=== PATIENT | male | born 1985 | race Hispanic/Latino ===

== ENCOUNTER → 2018-06-12 14:43 | Outpatient (CLI) | payer OTHER, MEDICAID, SELFPAY ==
--- NOTE | 2018-06-12 | DI.RAD.S_ITS ---
PROCEDURE: XR WRIST LT MIN 3V INDICATIONS: PAIN IN LEFT WRIST TECHNIQUE: 4 views of the wrist were acquired. COMPARISON: None. FINDINGS: Bones: No fractures or dislocations. No suspicious bony lesions. Scaphoid view: No scaphoid fracture seen Soft tissues: No suspicious soft tissue calcifications. IMPRESSION: Negative for fracture Dictated by: Bruce Vora M.D. on 06/12/2018 at 15:09 Approved by: Bruce Vora M.D. on 06/12/2018 at 15:11
== END ==
PROVIDERS: PCP Physician Assistant; Visit Provider Physician Assistant
DX: M25.532 Pain in left wrist (principal)
CPT/HCPCS: 73110

== ENCOUNTER → 2021-06-01 15:08 | Outpatient (CLI) | payer OTHER, MEDICAID, SELFPAY | PROVIDERS: PCP Student in an Organized Health Care Education/Training Program; Referring Provider Student in an Organized Health Care Education/Training Program; Visit Provider Student in an Organized Health Care Education/Training Program | DX: R73.03 Prediabetes (principal) | CPT/HCPCS: 36415; 83036 ==

== ENCOUNTER → 2021-10-10 09:35 | Outpatient (CLI) | payer MEDICARE, OTHER, MEDICAID, SELFPAY ==
[2021-10-10 11:29] LABS: Cholesterol 199 mg/dL (140-199); HDL Cholesterol 29 mg/dL (40-60); Triglycerides 469 mg/dL (35-150)
== END ==
PROVIDERS: PCP Student in an Organized Health Care Education/Training Program; Referring Provider Student in an Organized Health Care Education/Training Program; Visit Provider Student in an Organized Health Care Education/Training Program
DX: E78.5 Hyperlipidemia, unspecified (principal)
CPT/HCPCS: 36415; 80061

== ENCOUNTER → 2022-08-24 09:13 | Outpatient (CLI) | payer MEDICARE, OTHER, MEDICAID, SELFPAY ==
[2022-08-24 10:58] LABS: Hemoglobin A1C% w Est Avg Glu 6.7 % (4.0-6.0)
[2022-08-24 11:14] LABS: Cholesterol 225 mg/dL (140-199); HDL Cholesterol 25 mg/dL (40-60)
[2022-08-24 11:20] LABS: Creatinine Urine Random 173.7 mg/dL
[2022-08-24 11:26] LABS: Triglycerides 876 mg/dL (35-150)
[2022-08-24 11:33] LABS: Microalbumi Creatinin Ratio Ur 89.2 ug/mg CR (<30); Microalbumin Urine Random 15.5 mg/dL (0-1.6)
== END ==
PROVIDERS: PCP Student in an Organized Health Care Education/Training Program; Referring Provider Student in an Organized Health Care Education/Training Program; Visit Provider Student in an Organized Health Care Education/Training Program
DX: E11.69 Type 2 diabetes mellitus with other specified complication (principal); E66.9 Obesity, unspecified; E78.1 Pure hyperglyceridemia
CPT/HCPCS: 36415; 80061; 82043; 82570; 83036

== ENCOUNTER → 2022-11-12 08:13 | Outpatient (CLI) | payer MEDICARE, OTHER, MEDICAID, SELFPAY ==
[2022-11-12 10:17] LABS: Creatinine Urine Random 180.6 mg/dL
[2022-11-12 10:21] LABS: Microalbumi Creatinin Ratio Ur 45.4 ug/mg CR (<30); Microalbumin Urine Random 8.2 mg/dL (0-1.6)
[2022-11-12 10:43] LABS: BUN Creatinine Ratio 10.6 (6-22); Blood Urea Nitrogen 9 mg/dL (9-20); Calcium 9.9 mg/dL (8.4-10.2); Carbon Dioxide 26 mmol/L (22-32); Chloride 102 mmol/L (98-107); Estimated Glomerular Filt Rate > 60 mL/min (>60); Glucose 139 mg/dL (70-100); HEMOLYSIS < 15 (0-50); Potassium 4.3 mmol/L (3.4-5.1); Sodium 139 mmol/L (137-145); Triglycerides 476 mg/dL (35-150)
[2022-11-12 10:54] LABS: LDL Cholesterol Direct 99 mg/dL (<100)
== END ==
PROVIDERS: PCP Student in an Organized Health Care Education/Training Program; Referring Provider Student in an Organized Health Care Education/Training Program; Visit Provider Student in an Organized Health Care Education/Training Program
DX: E11.29 Type 2 diabetes mellitus with other diabetic kidney complication (principal); E11.69 Type 2 diabetes mellitus with other specified complication; E66.9 Obesity, unspecified; E78.1 Pure hyperglyceridemia; R80.9 Proteinuria, unspecified
CPT/HCPCS: 36415; 80048; 82043; 82570; 83721; 84478

== ENCOUNTER 2023-05-30 20:59 | Emergency (ER) | payer MEDICARE, MEDICAID, SELFPAY ==
[2023-05-30 21:05] VITALS: BP 148/78; PULSE 79; RESP 18; TEMP 37.5; O2SAT 99
[2023-05-30 22:37] VITALS: BP 143/85; PULSE 72; RESP 20; TEMP 37.1; O2SAT 99
[2023-05-31 01:42] VITALS: BP 142/78; PULSE 69; RESP 16; TEMP 36.6; O2SAT 99
--- NOTE | 2023-05-31 02:52 | ED_ITS ---
HPI - Back Pain/Injury General Chief Complaint: Abdominal Pain Stated Complaint: lt sided pain, heard a pop Time Seen by Provider: 05/31/23 02:30 Source: patient History of Present Illness HPI Narrative: Patient is a 37-year-old male history of mental health, hypertension type 2 diabetes, hypertriglyceridemia presents today with sudden onset of left-sided flank and back pain. He reports he was sitting and felt a sudden pop 20 minutes prior to arrival. He denies fever chills no nausea or vomiting. He did not take anything for the pain. He denies any injury. He is no prior history of any sort of kidney stone. He is able to drink juice in the ED. does seem to be reproducible symptoms with palpation and movement. Overall appears comfortable now. Related Data Home Medications Medication Instructions Recorded Confirmed lithium carbonate 300 mg capsule 300 mg PO DAILY 05/02/21 12/12/22 lithium carbonate 600 mg capsule 600 mg PO BID 05/02/21 12/12/22 omega-3 fatty acids 1,000 mg 1,000 mg PO DAILY 08/24/22 12/12/22 capsule fluphenazine HCl 5 mg tablet 5 mg PO DAILY 12/12/22 12/12/22 paliperidone palm (3 month) 819 syringe IM 12/12/22 12/12/22 mg/2.63 mL intramuscular syringe (Invega Trinza) Previous Rx's Medication Instructions Recorded benztropine 1 mg tablet 1 mg PO BEDTIME #90 tabs 09/05/21 prazosin 2 mg capsule 2 mg PO BEDTIME #90 caps 09/05/21 pravastatin 40 mg tablet 40 mg PO BEDTIME #90 tabs 08/24/22 carvedilol 25 mg tablet 25 mg PO DAILY #90 tabs 03/06/23 loratadine 10 mg tablet (Allergy 10 mg PO DAILY #30 tabs 05/29/23 Relief (loratadine)) Allergies Allergy/AdvReac Type Severity Reaction Status Date / Time fenofibrate AdvReac Intermediate knee pain Verified 05/30/23 21:18 Review of Systems Review of Systems ROS Unobtainable: All systems reviewed & are unremarkable except as noted in HPI and below Patient History Social History Smoking Status: Current some day smoker Smoking Status: Current some day smoker tobacco type: cigars alcohol intake frequency: 0-2 drinks per day Substance Use Type: does not use Exam Initial Vital Signs Initial Vital Signs: Vital Signs Temperature 99.5 F 05/30/23 21:05 Pulse Rate 79 05/30/23 21:05 Respiratory Rate 18 05/30/23 21:05 Blood Pressure 148/78 H 05/30/23 21:05 Pulse Oximetry 99 05/30/23 21:05 Oxygen Delivery Method Room Air 05/30/23 21:05 GENERAL: Alert pleasant 37-year-old male and in no acute distress. HEENT: Head atraumatic,EOMI, pupils reactive, face symmetric, moist mucous membranes CARDIOVASCULAR: Regular rate and rhythm without murmurs, rubs or gallops. RESPIRATORY: Breath sounds equal bilaterally, no wheezes rales or rhonchi. ABDOMEN: Soft, nontender. Normoactive bowel sounds all 4 quadrants. No guarding or rebound. No left lower quadrant pain BACK: No vertebral tenderness no step-off lower lumbar pain : Mild left CVA tenderness EXTREMITIES: Normal range of motion, no clubbing or edema. Neurovascularly intact NEUROLOGICAL: Alert and oriented x4. SKIN: Warm, dry, no laceration, no petechiae, no rashes or lesions. Course Orders Ordered: Discontinued Medications Ibuprofen (Ibuprofen 400 Mg Tablet) 800 mg PO NOW ONE Stop: 05/31/23 02:53 Last Admin: 05/31/23 02:57 Dose: 800 mg Documented By: CHRISTIANA Vital Signs Vital signs: Vital Signs - 8 hr 05/31/23 01:42 05/31/23 03:14 Temperature 97.9 F Pulse Rate 69 60 Respiratory Rate 16 Blood Pressure 142/78 H 169/88 H Pulse Oximetry 99 98 Oxygen Delivery Method Room Air Room Air MDM - Back Pain/Injury Lab Data Labs: Urine Dip Bedside Urine Glucose Negative Bedside Urine Bilirubin - Negative Bedside Urine Ketone - Negative Urine Specific [place] 1.020 Bedside Urine Occult Blood - Negative Bedside Urine pH 6.0 Bedside Urine Protein - Negative Bedside Urine Urobilinogen - Negative Bedside Urine Nitrite - Negative Bedside Urine Leukocytes - Negative Esterase MDM Narrative Medical decision making narrative: Patient overall appears very comfortable. Presents today with left-sided pain that came on suddenly. It is reproducible to palpation it was kind of on the side initially but does seem to be in the flank area. Urinalysis is negative. I have a very low suspicion for kidney stone although still possible. He is very comfortable. He is given ibuprofen for pain. At this time I recommend going home and returning if pain is worse Discharge Plan Departure Patient Disposition: Home Clinical Impression: Back pain Instructions: Low Back Pain Activity Restrictions/Additional Instructions: *You have been diagnosed with back pain *What to do: At this time try heating pad and stretches *Continue to take medications as directed Motrin 600 mg every 6 hours if needed for ekou-un-vejpfgae pain Tylenol 650 mg every 6 hours if needed for kpwl-lu-sztfvphn pain *Follow up with your primary care provider in 2-3 days or call [phone] *Return to ER if you should have increasing pain nausea vomiting or any new, worsening or concerning symptoms Prescriptions: No Action pravastatin 40 mg tablet 40 mg PO BEDTIME Qty: 90 3RF omega-3 fatty acids 1,000 mg capsule 1,000 mg PO DAILY carvedilol 25 mg tablet 25 mg PO DAILY Qty: 90 1RF Hold Instructions: needs labs Rx Instructions: must administer with a meal/food loratadine [Allergy Relief (loratadine)] 10 mg tablet 10 mg PO DAILY Qty: 30 0RF benztropine 1 mg tablet 1 mg PO BEDTIME Qty: 90 1RF prazosin 2 mg capsule 2 mg PO BEDTIME Qty: 90 1RF Invega Trinza 819 mg/2.63 mL syringe IM fluphenazine HCl 5 mg tablet 5 mg PO DAILY lithium carbonate 600 mg capsule 600 mg PO BID lithium carbonate 300 mg capsule 300 mg PO DAILY Referrals: Patel Paulson MD [Primary Care Provider] - Stand Alone Forms: Patient Portal/API
[2023-05-31] MEDS: IBUPROFEN 400 MG TABLET 800 MG PO (02:57)
[2023-05-31 03:14] VITALS: BP 169/88; PULSE 60; O2SAT 98
== END 2023-05-31 03:15 | disposition home or self-care (01) ==
PROVIDERS: Emergency Provider Emergency Medicine; PCP Student in an Organized Health Care Education/Training Program
DX: M54.9 Dorsalgia, unspecified (principal)
CPT/HCPCS: 81003; 99282; 99283

== ENCOUNTER → 2023-10-28 11:28 | Outpatient (CLI) | payer OTHER, MEDICAID, SELFPAY ==
[2023-10-28 13:50] LABS: Add Manual Diff / Slide Review NO; Basophils Absolute Auto 0 /uL (0-100); Basophils Percent Auto 0.9 % (0-2); Eosinophils Absolute Auto 300 /uL (0-450); Eosinophils Percent Auto 5.4 % (2-4); Hematocrit 42.5 % (41-53); Hemoglobin 14.3 g/dL (13.5-17.5); Lymphocytes Absolute Auto 2100 /uL (1100-4500); Lymphocytes Percent Auto 42.2 % (25-40); Mean Corpuscular HGB Conc 33.7 % (30-36); Mean Corpuscular Hemoglobin 30.9 PG (26-34); Mean Corpuscular Volume 91.7 fL (80-100); Monocytes Absolute Auto 300 /uL (0-900); Monocytes Percent Auto 6.4 % (3-14); Neutrophils Absolute Auto 2300 /uL (1500-7000); Neutrophils Percent Auto 45.1 % (50-75); Platelet Count 232 X10^3/uL (150-400); Red Blood Cell Count 4.64 X10^6/uL (4.5-5.9); Red Cell Distribution Width 12.8 % (11.6-14.8); White Blood Cell Count 5.1 X10^3/uL (4.5-11.0)
[2023-10-28 13:56] LABS: Hemoglobin A1C% w Est Avg Glu 6.7 % (4.0-6.0)
[2023-10-28 14:11] LABS: Alanine Aminotransferase 131 IU/L (<50); Albumin 4.6 g/dL (3.5-5.0); Albumin Globulin Ratio 1.3 (1.0-2.8); Alkaline Phosphatase 91 U/L (38-126); Aspartate Aminotransferase 115 IU/L (17-59); BUN Creatinine Ratio 12.3 (6-22); Bilirubin Total 0.7 mg/dL (0.2-1.3); Blood Urea Nitrogen 9 mg/dL (9-20); Carbon Dioxide 25 mmol/L (22-32); Chloride 103 mmol/L (98-107); Cholesterol 241 mg/dL (140-199); Estimated Glomerular Filt Rate > 60 mL/min (>60); Globulin 3.6 g/dL (1.7-4.1); Glucose 141 mg/dL (70-100); HDL Cholesterol 30 mg/dL (40-60); HEMOLYSIS < 15 (0-50); Potassium 3.9 mmol/L (3.4-5.1); Sodium 138 mmol/L (137-145); Total Protein 8.2 g/dL (6.3-8.2)
[2023-10-28 14:24] LABS: Triglycerides 575 mg/dL (35-150)
[2023-10-28 14:40] LABS: TSH w/ Reflex to FT4 0.72 uIU/mL (0.47-4.68)
[2023-10-29 19:51] LABS: Creatinine Urine Random 180.9 mg/dL
[2023-10-29 19:58] LABS: Microalbumi Creatinin Ratio Ur 56.9 ug/mg CR (<30); Microalbumin Urine Random 10.3 mg/dL (0-1.6)
== END ==
PROVIDERS: PCP Family Medicine; Referring Provider Family Medicine; Visit Provider Family Medicine
DX: F20.9 Schizophrenia, unspecified (principal); Z79.899 Other long term (current) drug therapy; E11.69 Type 2 diabetes mellitus with other specified complication; E66.9 Obesity, unspecified; R80.9 Proteinuria, unspecified
CPT/HCPCS: 36415; 80053; 80061; 82043; 82570; 83036; 84443; 85025

== ENCOUNTER → 2023-11-12 06:41 | Outpatient (CLI) | payer OTHER, MEDICAID, SELFPAY ==
--- NOTE | 2023-11-12 06:42 | DI.US.S_ITS ---
PROCEDURE: US ABDOMEN LIMITED INDICATIONS: ELEVATED LIVER ENZYMES TECHNIQUE: Real-time scanning was performed of the abdominal and retroperitoneal organs, with image documentation. COMPARISON: None. FINDINGS: Liver: Measures 15.4 cm in length. Increased in echogenicity. Gallbladder: Nondilated. No stones or sludge. Normal gallbladder wall thickness. No pericholecystic fluid. Negative sonographic Hill's sign. Biliary ducts: Intrahepatic bile ducts are non-dilated. CBD is not well seen. Common hepatic duct measures 0.3 cm. Normal is 6-7 mm or less in diameter, or 10 mm or less post-cholecystectomy. Pancreas: Visualized portions of the pancreas are sonographically normal. Tail is not well seen due to bowel gas. IMPRESSION: 1. Increased hepatic echogenicity most consistent with hepatic steatosis. Other forms of hepatocellular disease could have similar appearance. 2. No acute cholecystitis. No gallstones. Dictated by: Loco Sanchez M.D. on 11/12/2023 at 9:20 Approved by: Loco Sanchez M.D. on 11/12/2023 at 9:23
== END ==
PROVIDERS: PCP Family Medicine; Referring Provider Family Medicine; Visit Provider Family Medicine
DX: E11.69 Type 2 diabetes mellitus with other specified complication (principal); E66.9 Obesity, unspecified; E78.1 Pure hyperglyceridemia; R74.8 Abnormal levels of other serum enzymes
CPT/HCPCS: 76705

== ENCOUNTER → 2024-01-24 08:13 | Outpatient (CLI) | payer OTHER, MEDICAID, SELFPAY ==
--- NOTE | 2024-02-05 17:03 | DIAB.MNT ---
Initial Diabetes Medical Nutrition Therapy Assessment Name: Sriram Carlin Date: 01/24/24 Time: [id number] Dx: Type II Diabetes Patrick presents for initial DM visit. This is a new diagnosis for Patrick. Also PMH significant for schizophrenia, HTN, HLD. Lives with parents. Denies any FH of DM. Reports difficulty with motivation and compulsive behaviors due to behavioral health. States he feels this is a barrier to diabetes management. Since diagnosis states he has been trying to increase fiber and is avoiding pasta, chips, soda and mauritanian food. Culturally [place] and . States he is working on -10# per month Diet Recall: 8-9a: bread x 1-2 with PB and zero sugar sports drink sn: nothing or dark chocolate or fruit 1-2p: oatmeal x 2-3c with sugar and butter 6-7p: 2 servings of yogurt sweetened 8-9p: chicken with salad +/- potatoes OR sandwich on ww bread (tuna or egg) OR rice with chicken adobo OR pancit noodles 8-9 x 16.9oz water, sf sports drink, diet or regular soda Anthropometrics: Ht: 6'1 Wt: 260-270# reported (268# 10/2023 per EMR) Physical Activity: walks daily, morning 2 hr and afternoon 30 min. Has resistance training equipment at home. waiting to buy a bench for equipment use. Does yard work. Self-Monitoring Blood Glucose: None Diabetes Medications: None Pertinent Labs: HgA1c: 6.7% 08/2022 6.7% 10/2023 Nutrition Rx: Carbohydrates: Meal:45g Snack:15-30g Nutrition Diagnosis: - Excessive CHO intake r/t nutrition knowledge deficit aeb diet recall and new dx Intervention: This participant was very receptive. Provided appropriate educational handouts. Discussed the following topics: Completed intake assessment. Discussed barriers to care. Pathophysiology of T2DM in brief Plate Method, impact of macronutrients on blood sugar, meal timing, pairing macronutrients and spreading out carbohydrates for better blood glucose management Recommended servings for carbohydrates at meals and snacks Heart health nutrition Brainstormed appropriate meal plan based on food preferences Role of physical activity fiber recs Created SMART goals for patient self-care and success. Goals: walk 1-2 mi per day Follow nutrition meal plan discussed Keep CHO servings to 1c at meals Increase veggie intake Follow-up: [facility]RINE [facility] follow-up in 2-3 weeks Cristina Kirkland RDN, EBENEZ[facility] Certified Diabetes Care and Service Delivery Analyst P: [phone] Thank you for this referral
== END ==
LOC: DIET 08:14
PROVIDERS: PCP Family Medicine; Referring Provider Family Medicine; Visit Provider Family Medicine
DX: E66.9 Obesity, unspecified (principal); E11.69 Type 2 diabetes mellitus with other specified complication; E78.5 Hyperlipidemia, unspecified; Z71.3 Dietary counseling and surveillance
CPT/HCPCS: 97802

== ENCOUNTER → 2024-02-18 07:53 | Outpatient (CLI) | payer OTHER, MEDICAID, SELFPAY ==
--- NOTE | 2024-02-18 09:33 | DIAB.MNTFU ---
Follow-up Diabetes Medical Nutrition Therapy Assessment Name: Sriram Carlin Date: 02/18/24 Time: 9-930a Dx: Type II Diabetes Patrick presents for Dm follow-up. Reports some high carb intake with 2c raisin based cereal. Also reports increased veggie intake, but would like to buy different veggies on pay day for more variety. Avoiding rice at family dinner time. Reports he has given up soda, which previous to dx was drinking 32oz per day. Now diet beverages and water. Reports recent candy intake, ie gummy bears. Has questions regarding HgA1c goals. No PCP f/u scheduled. Anthropometrics: Ht: 6'1 Wt: 260-270# reported last visit (268# 10/2023 per EMR) Physical Activity: Last visit reported walks daily, morning 2 hr and afternoon 30 min. Has resistance training equipment at home. waiting to buy a bench for equipment use. Does yard work. This visit reports some pain with knee recently. Reduced walks to 15 min per day. Self-Monitoring Blood Glucose: None Diabetes Medications: None Pertinent Labs: HgA1c: 6.7% 08/2022 6.7% 10/2023 Nutrition Rx: Carbohydrates: Meal:45g Snack:15-30g Nutrition Diagnosis: - Excessive CHO intake r/t nutrition knowledge deficit aeb diet recall and new dx Intervention: This participant was very receptive. Provided appropriate educational handouts. Discussed the following topics: hgA1c goal <6.5% given 6.7% at diagnosis Meal planning, portion, and pairing macros review Physical activity plan and progress Cereal options that are lower in carbs increasing veggie intake and variety Avoiding high carb foods, ie candy, sugar cereals PCP follow-up for labs Created SMART goals for patient self-care and success. Goals: walk 1-2 mi per day- in progress Follow nutrition meal plan discussed- in progress Keep CHO servings to 1c at meals- in progress Increase veggie intake- met Switch to cheerios- new Add nuts to oatmeal- new Keep rice to 1c - new Call PCP for f/u visit- new Follow-up: CORRINE SOL follow-up in 4 weeks Cristina Kirkland RDN, EBENE[facility] Certified Diabetes Care and Manager Of Compensation P: [phone] Thank you for this referral
== END ==
PROVIDERS: PCP Family Medicine; Referring Provider Family Medicine; Visit Provider Family Medicine
DX: E11.9 Type 2 diabetes mellitus without complications (principal); Z71.3 Dietary counseling and surveillance
CPT/HCPCS: 97803

== ENCOUNTER → 2024-03-25 07:29 | Outpatient (CLI) | payer OTHER, MEDICAID, SELFPAY ==
--- NOTE | 2024-03-25 09:06 | DIAB.MNTFU ---
Follow-up Diabetes Medical Nutrition Therapy Assessment Name: Sriram Carlin Date: 03/25/24 Time: 129-583q Dx: Type II Diabetes Patrick presents for DM follow-up. Eating more veggies. Eating salads. This week having salads daily 1-2x. Not doing nuts due to balderrama. Will switch to PB. Drinking more sf beverages Switched to cheerios Feels he is eating healthy most of the time, but more fast food recently. Reports milk shakes, oreo ice cream, or 2 double cheeseburgers at fast food places recently. Sometimes up to 4 x per week. Has some food security concerns, but reports chicken and salads are affordable for him. He likes plain chicken, which is why he does not eat dinner with family. Diet Recall: 8-9a: PB with bread or cookie butter with bread x2 (sometimes 3) OR fruit and Icelandic yogurt 1p: 1.5 c vanilla ice cream with oreos crushed (from fast food)4x last week OR handful of fruit sn: banana 7-8p: fast food last week (2 double cheeseburgers, +/- milk shake) OR 2c rice, meat OR salad Anthropometrics: Ht: 6'1 Wt: 260-270# previously reported (268# 10/2023 per EMR) Physical Activity: 25 min walks daily Self-Monitoring Blood Glucose: None Diabetes Medications: None Pertinent Labs: HgA1c: 6.7% 08/2022 6.7% 10/2023 Nutrition Rx: Carbohydrates: Meal:45g Snack:15-30g Nutrition Diagnosis: - Excessive CHO intake r/t nutrition knowledge deficit aeb diet recall and new dx Intervention: This participant was very receptive. Provided appropriate educational handouts. Discussed the following topics: Eating out strategies and impact on BG Carb recs and comparing fastfood choices Carb portions Strategies for affordable healthy foods at home physical activity Fatty liver MNT and labs Created SMART goals for patient self-care and success. Goals: Switch to cheerios- met Add nuts to oatmeal- d/c Keep rice to 1c - not met Call PCP for f/u visit- not met Stop by PCP office today for appt- new Eat salad with dinner- new Choose salad or sandwich for lunch- new Buy chicken- new Avoid desserts at fast food- new Follow-up: RDN [facility] follow-up in 3-4 weeks Cristina Kirkland RDN, EBENEZER Certified Diabetes Care and Blow Torch Operator P: [phone] Thank you for this referral
== END ==
PROVIDERS: PCP Family Medicine; Referring Provider Family Medicine
DX: E11.69 Type 2 diabetes mellitus with other specified complication (principal); E78.5 Hyperlipidemia, unspecified; E66.9 Obesity, unspecified; Z71.3 Dietary counseling and surveillance
CPT/HCPCS: 97803

== ENCOUNTER → 2024-04-24 08:35 | Outpatient (CLI) | payer OTHER, MEDICAID, SELFPAY ==
--- NOTE | 2024-04-24 10:00 | DIAB.MNTFU ---
Follow-up Diabetes Medical Nutrition Therapy Assessment Name: Sriram Carlin Date: 04/24/24 Time: 100a Dx: Type II Diabetes Patrick presents for Dm follow-up. Saw PCP last month, with improved hgA1c to 6.4%. Reports plans to re run liver enzyme labs in September. He voices concerns about his liver and how to improve liver health. Endorses eating more veggies. Eating salad in the afternoon. Still quite a bit of eating out, including desserts, though less than previous. Questions regarding sf beverages v sugared beverages. Was drinking sf soda but choosing sugar tea. Reports increased thirst over the last few years and he is unsure why Diet Recall: B: fruit, 2 breakfast sandwiches from [employer] L: yogurt OR PB with bread sn: pudding D: chicken adobo with fruit (berries) sn: avoids Beverages: sf beverages, water, occasional sugar beverages Anthropometrics: Ht: 6' Wt: 267# 03/2024 Weight history: 268# 10/2023 per EMR Physical Activity: Walking daily 15-20 min 2x per day Self-Monitoring Blood Glucose: None Diabetes Medications: None Pertinent Labs: HgA1c: 6.7% 08/2022 6.7% 10/2023 6.4% 03/2024 Nutrition Rx: Carbohydrates: Meal:45g Snack:15-30g Nutrition Diagnosis: - Excessive CHO intake r/t undesirable beverage choices aeb pt report and diet recall - Predicted excessive Na intake r/t eating out occurences aeb pt report and diet recall Intervention: This participant was very receptive. Provided appropriate educational handouts. Discussed the following topics: Eating out recommendations to limit Na and CHO Meal planning and limiting eating out for both Dm and liver health Physical activity plan and progress Strategies for increasing veggie intake s/s of hyperglycemia, ie thirst Created SMART goals for patient self-care and success. Goals: Stop by PCP office today for appt- met Eat salad with dinner- improved Choose salad or sandwich for lunch- not met Buy chicken- met Avoid desserts at fast food- in progress Avoid fast food and gas station foods- new Choose egg breakfast sandwich without the sausage- new Choose sf beverages- new Follow-up: CORRINE SOL follow-up in 1 month Cristina Kirkland RDN, EBENEZ[facility] Certified Diabetes Care and Plate Gauger P: [phone] Thank you for this referral
== END ==
PROVIDERS: PCP Family Medicine; Referring Provider Family Medicine
DX: E11.9 Type 2 diabetes mellitus without complications (principal); Z71.3 Dietary counseling and surveillance
CPT/HCPCS: 97803

== ENCOUNTER → 2024-07-09 08:03 | Outpatient (CLI) | payer OTHER, MEDICAID, SELFPAY ==
--- NOTE | 2024-07-09 09:02 | DIAB.MNTFU ---
Follow-up Diabetes Medical Nutrition Therapy Assessment Name: Sriram Carlin Date: 07/09/24 Time: 0a Dx: Type II Diabetes Patrick presents for Dm follow-up. Has reduced sugar beverages per report. 2-3 x 12oz diet soda per day instead. Some abdominal discomfort on the weekends. He thinks this may be from indigestion. last hgA1c to 6.4%. Reports plans to re run liver enzyme labs in September. no longer eating breakfast sandwiches from [employer] ([employer]). Wants to start incorporating more veggies and sandwiches 2-3 days per week milkshakes from fast food restaurants. Diet Recall: B: 3 bread with nutella or pb L: crispy chicken burgers from grocery store deli sn: sunflower seeds OR carrots D: eggs, sausage, cheese Beverages: sf beverages, water, somtimes sugar beverages Anthropometrics: Ht: 6' Wt: 265# today (reports 255# at home) 267# 03/2024 Weight history: 268# 10/2023 per EMR Physical Activity: Walking daily 30-45 min 1-2x per day Self-Monitoring Blood Glucose: None Diabetes Medications: None Pertinent Labs: HgA1c: 6.7% 08/2022 6.7% 10/2023 6.4% 03/2024 Nutrition Rx: Carbohydrates: Meal:45g Snack:15-30g Nutrition Diagnosis: - Excessive CHO intake r/t undesirable beverage choices aeb pt report and diet recall-in progress/improved - Predicted excessive Na intake r/t eating out occurences aeb pt report and diet recall - improved - Predicted inadequate fiber intake r/t limited whole grains and veggies aeb diet recall- new Intervention: This participant was very receptive. Provided appropriate educational handouts. Discussed the following topics: Fatty liver MNT: lower sat fat and sodium Smoothie ideas Home sandwich and veggie ideas Eating out vs quick home cook ideas Physical activity Strategies for veggie intake Created SMART goals for patient self-care and success. Goals: Avoid fast food and gas station foods- improved Choose egg breakfast sandwich without the sausage-not met Choose sf beverages- improved Try walking after each meal- new Try a smoothie at home- new Vegetables twice per day- new Avoid eating out- new Follow-up: CORRINE SOL follow-up in 4 weeks Cristina Kirkland RDN, [facility] Certified Diabetes Care and Tunnel Miner P: [phone] Thank you for this referral
== END ==
PROVIDERS: PCP Family Medicine; Referring Provider Family Medicine
DX: E66.9 Obesity, unspecified (principal); E11.69 Type 2 diabetes mellitus with other specified complication; E78.5 Hyperlipidemia, unspecified; Z71.3 Dietary counseling and surveillance
CPT/HCPCS: 97803

== ENCOUNTER → 2024-08-04 08:28 | Outpatient (CLI) | payer OTHER, MEDICAID, SELFPAY ==
--- NOTE | 2024-08-04 09:06 | DIAB.FU ---
Follow-up Diabetes Education Assessment Name: Sriram Carlin Date: 08/04/24 Time: 90a Dx: Type II Diabetes Patrick presents for Dm follow-up. Tried smoothie recipes from last visit and enjoyed them. Has reduced milkshakes to 1x per week. Trying to increase veggie intake, usually ends up 3-4 days per week. Has been avoiding eating out recently. Eating some ready to eat foods from grocery store though, ie breakfast burrito (potatoes, eggs, and sausage) or savory eggs/cheese muffin. Sometimes orders a sandwich, tuna. Last eye doctor visit 5 years ago. Saw dentist last month. Checks feet everyday. Reports some tingling in left hand. Endorses some pain in ab area. Has not brought up to provider. Plans to do next visit. Encouraged him to call for sooner appt prn. Sees PCP in September. Feels things are going well, but would like to see each other again prior to PCP visit. Anthropometrics: Ht: 6' Wt: 260# reported today 265# 07/09/2024 267# 03/2024 Weight history: 268# 10/2023 per EMR Physical Activity: Walking daily 20 min 2x per day in the morning + 8min x 3 walks in the afternoon. Self-Monitoring Blood Glucose: None Diabetes Medications: None Pertinent Labs: HgA1c: 6.7% 08/2022 6.7% 10/2023 6.4% 03/2024 Intervention: This participant was very receptive. Provided appropriate educational handouts. Discussed the following topics: Diabetes complication risk reduction Foot health and recommendations eye and dental visit recommendations Importance of regular veggie intake in overall health Physical activity plan and progress Created SMART goals for patient self-care and success. Goals: Try walking after each meal- met Try a smoothie at home- met Vegetables twice per day- not met Avoid eating out- met Make an eye appointment- new Follow-up: CORRINE SOL follow-up in 4 weeks Cristina Kirkland RDN, EBENEZER Certified Diabetes Care and Service Tech P: [phone] Thank you for this referral
== END ==
PROVIDERS: PCP Family Medicine; Referring Provider Family Medicine
DX: E11.69 Type 2 diabetes mellitus with other specified complication (principal); Z71.3 Dietary counseling and surveillance; K76.0 Fatty (change of) liver, not elsewhere classified; E66.9 Obesity, unspecified; E78.5 Hyperlipidemia, unspecified
CPT/HCPCS: G0108

== ENCOUNTER → 2024-09-02 08:13 | Outpatient (CLI) | payer OTHER, MEDICAID, SELFPAY ==
--- NOTE | 2024-09-02 09:02 | DIAB.MNTFU ---
Follow-up Diabetes Medical Nutrition Therapy Assessment Name: Sriram Carlin Date: 09/02/24 Time: Dx: Type II Diabetes Patrick presents for Dm follow-up. Drinking flavored water. Avoiding fast food. Eating some grocery store pre prepared foods, ie breakfast burrito. Having smoothies still. Reduced milkshakes. Eating veggies usually 3-4 days per week. Worries about his fatty liver diagnosis and if it is getting better. Last eye doctor visit 5 years ago. waiting to go due to trying to save money to buy new glasses. UTD for dental. Checks feet everyday. Avoiding juice, will drink seltzer water. Family not currently cooking dinner. Sees PCP in September. Diet Recall: wakes at 7-8a 10a: egg, ham burrito 2-3p: 2c rice 930-10p: cheerios 2.5c with milk +/- fruit (bananax1) Water, seltzer water, sf beverages Will snack on cereal bars with nuts in them. worries he cannot enjoy his family prepared Guamanian food due to liver or DM health. Anthropometrics: Ht: 6' Wt: 258# reported today 260# reported last visit 265# 07/09/2024 267# 03/2024 Weight history: 268# 10/2023 per EMR Physical Activity: Walking daily 20 min 2x per day. Self-Monitoring Blood Glucose: None Diabetes Medications: None Pertinent Labs: HgA1c: 6.7% 08/2022 6.7% 10/2023 6.4% 03/2024 Nutrition Rx: Carbohydrates: Meal:45g Snack:15-30g Nutrition Diagnosis: - Excessive CHO intake r/t undesirable beverage choices aeb pt report and diet recall-improved - Predicted excessive Na intake r/t eating out occurences aeb pt report and diet recall - improved - Predicted inadequate fiber intake r/t limited whole grains and veggies aeb diet recall- in progress - Excessive CHO intake r/t large portions and inadequate protein options aeb diet recall- new Intervention: This participant was very receptive. Provided appropriate educational handouts. Discussed the following topics: Plate Method, macro pairing, carb portion recs Gu[place]ian foods and portion recs Strategies for easy prep meals Strategies for increasing protein and veggie intake Encouraged eye appt even if he does not buy new glasses right away Physical activity plan and progress Created SMART goals for patient self-care and success. Goals: Make an eye appointment- in progress Keep rice to 1c at meals- new No fruit with cereal- new Try sandwich or quesadilla instead of cereal- new Eat [place]ian food with family, but keep rice to 1c- new Complete labs 1 week prior to PCP visit- new Follow-up: CORRINE SOL follow-up in 4-5 weeks Cristina Kirkland RDN, EBENEZ[facility] Certified Diabetes Care and Mold Holder P: [phone] Thank you for this referral
== END ==
PROVIDERS: PCP Family Medicine; Referring Provider Family Medicine
DX: E11.69 Type 2 diabetes mellitus with other specified complication (principal); E66.9 Obesity, unspecified; E78.5 Hyperlipidemia, unspecified; Z71.3 Dietary counseling and surveillance
CPT/HCPCS: 97803

== ENCOUNTER → 2024-09-21 08:56 | Outpatient (CLI) | payer OTHER, MEDICAID, SELFPAY ==
[2024-09-21 10:47] LABS: Alanine Aminotransferase 46 IU/L (<50); Albumin Globulin Ratio 1.7 (1.0-2.8); Alkaline Phosphatase 79 U/L (38-126); Aspartate Aminotransferase 39 IU/L (17-59); BUN Creatinine Ratio 13.9 (6-22); Bilirubin Total 0.9 mg/dL (0.2-1.3); Blood Urea Nitrogen 15 mg/dL (9-20); Calcium 10.4 mg/dL (8.4-10.2); Carbon Dioxide 24 mmol/L (22-32); Chloride 104 mmol/L (98-107); Cholesterol 213 mg/dL (140-199); Estimated Glomerular Filt Rate > 60 mL/min (>60); Glucose 135 mg/dL (70-100); HDL Cholesterol 35 mg/dL (40-60); HEMOLYSIS < 15 (0-50); Potassium 4.5 mmol/L (3.4-5.1); Sodium 138 mmol/L (137-145); Triglycerides 466 mg/dL (35-150)
== END ==
PROVIDERS: PCP Family Medicine; Referring Provider Family Medicine; Visit Provider Family Medicine
DX: R74.8 Abnormal levels of other serum enzymes (principal); E11.69 Type 2 diabetes mellitus with other specified complication; E78.5 Hyperlipidemia, unspecified; I10 Essential (primary) hypertension; E78.1 Pure hyperglyceridemia; Z79.899 Other long term (current) drug therapy
CPT/HCPCS: 36415; 80053; 80061

== ENCOUNTER → 2024-10-07 09:07 | Outpatient (CLI) | payer OTHER, MEDICAID, SELFPAY ==
--- NOTE | 2024-10-07 09:15 | DIAB.MNTFU ---
Follow-up Diabetes Medical Nutrition Therapy Assessment Name: Sriram Carlin Date: 10/07/24 Time: 683-916a Dx: Type II Diabetes Patrick presents for Dm follow-up. Reduced rice intake. Reduced milkshakes to once every other week. -10# over 6 months. Feels his clothes are fitting better. Thinks he would like to try prep food with olive oil more often. Reports some higher sat fat intake, ie veronica, pork sandwiches. Veronica once per week. Eating nuts 2 days per week. Eating fish 2x per week. Pork sandwich daily. Usually chooses cheerios for cereal but lately 2.5c honey bunches of oats with milk, open to almond milk Last eye doctor visit 5 years ago. waiting to go due to trying to save money to buy new glasses. UTD for dental. Checks feet everyday. Diet Recall: wakes at 7-8a 10a: egg, ham/sausage burrito 2-3p: sandwich, pbj with butter 930-10p:1/2-1c rice, cheese +/- veggies OR sandwich with cheese and veronica Water, seltzer water, sf beverages Anthropometrics: Ht: 6' Wt: 257# PCP visit 09/28/2024 258# reported 09/02/2024 260# reported 08/04/2024 265# 07/09/2024 267# 03/2024 Weight history: 268# 10/2023 per EMR Physical Activity: Walking daily 20 min 2x per day. Also using weights at home once per day. Self-Monitoring Blood Glucose: None Diabetes Medications: None Pertinent Labs: HgA1c: 6.7% 08/2022 6.7% 10/2023 6.4% 03/2024 6.1% 09/2024 Nutrition Rx: Carbohydrates: Meal:45g Snack:15-30g Nutrition Diagnosis: - Predicted inadequate fiber intake r/t limited whole grains and veggies aeb diet recall- in progress - Excessive CHO intake r/t large portions and inadequate protein options aeb diet recall- improved - Predicted excessive saturated fat intake r/t nutrition knowledge deficit and stage of change preparation aeb diet recall and pt report- new Intervention: This participant was very receptive. Provided appropriate educational handouts. Discussed the following topics: Choosing heart healthy fats and fiber Reducing saturated fats Carb rec portions for cereal Physical activity plan and progress Created SMART goals for patient self-care and success. Goals: Keep rice to 1c at meals- met No fruit with cereal- met Try sandwich or quesadilla instead of cereal-met Eat [place] food with family, but keep rice to 1c- met Complete labs 1 week prior to PCP visit- met Try veg/fruit/pro shakes once per week - new Reduce pork intake- new use olive oil- new Eat nuts daily- new Switch to [place] veronica- new Try 1.5c HB oats cereal with unsweet almond milk and nuts- new Follow-up: [facility] follow-up in 4-6 weeks Cristina Kirkland RDN, VIVIANAES Certified Diabetes Care and Coupon Redemption Clerk P: [phone] Thank you for this referral
== END ==
PROVIDERS: PCP Family Medicine; Referring Provider Family Medicine
DX: E11.69 Type 2 diabetes mellitus with other specified complication (principal); Z71.3 Dietary counseling and surveillance; E78.5 Hyperlipidemia, unspecified; E66.811 Obesity, class 1
CPT/HCPCS: 97803

== ENCOUNTER → 2024-11-17 08:38 | Outpatient (CLI) | payer OTHER, MEDICAID, SELFPAY ==
--- NOTE | 2024-11-17 08:57 | DIAB.MNTFU ---
Follow-up Diabetes Medical Nutrition Therapy Assessment Name: Sriram Carlin Date: 11/17/24 Time: 9930a Dx: Type II Diabetes Patrick presents for Dm follow-up. States he feels like nutrition could be better, ie he could eat more veggies. Aiming for more chicken, but does not like it as much. Eating pork once per week instead of daily. No beef recently. Fish 2-4x per week. Still eating nuts a couple times per week, but sometimes less due to cost. Switched to turkey coyle. Went back to regular coyle. Continues to keep rice to reduced amt 1-2 x per week. Eating HB oats handful without milk. Not using olive oil, not available at grocery outlet. Using butter to cook. Sometimes uses cooking oil or water. Doing fruit/veg protein shake, but ran out of protein powder. Salad 3-4 x per week Interested in grilled cheese dinner ideas. Last eye doctor visit 5 years ago. waiting to go due to trying to save money to buy new glasses. Aiming for eye appt in Summer. UTD for dental. Checks feet everyday. Diet Recall: wakes at 7-8a 10a: egg, potatoes, coyle burrito-- deli purchased 2-3p: yogurt -- unsure brand or type 9p: 1c pasta with veggies, beef OR 4 ww toast with pb or jelly and 1-2 banana 10p: milk 8oz x4 Water, seltzer water, sf beverages coffee (monster coffee) 30g CHO 1x q 1-3 weeks Anthropometrics: Ht: 6' Wt: 260# today 11/17/24 257# PCP visit 09/28/2024 258# reported 09/02/2024 260# reported 08/04/2024 265# 07/09/2024 267# 03/2024 Weight history: 268# 10/2023 per EMR Physical Activity: Walks dogs 25 min x 3-4 per day. Stopped wt lifting recently. Daily ab exercises. Self-Monitoring Blood Glucose: None Diabetes Medications: None Pertinent Labs: HgA1c: 6.7% 08/2022 6.7% 10/2023 6.4% 03/2024 6.1% 09/2024 Nutrition Rx: Carbohydrates: Meal:45g Snack:15-30g ; Plate Method Nutrition Diagnosis: - Predicted inadequate fiber intake r/t limited whole grains and veggies aeb diet recall- in progress - Predicted excessive saturated fat intake r/t nutrition knowledge deficit and stage of change preparation aeb diet recall and pt report- in progress - Excessive carbohydrate intake r/t long period of fasting in afternoon resulting in larger portions aeb diet recall- new Intervention: This participant was very receptive. Provided appropriate educational handouts. Discussed the following topics: Choosing heart healthy fats and fiber Reducing saturated fats Carb rec portions Meal timing Physical activity plan and progress balanced meal ideas Created SMART goals for patient self-care and success. Goals: Try veg/fruit/pro shakes once per week - met Reduce pork intake- met use olive oil- in progress Eat nuts daily- in progress Switch to Archie coyle- tried Try 1.5c HB oats cereal with unsweet almond milk and nuts- in progress Check [employer] for affordable olive oil- new check store for sugar free coffees- new Add 6p snack (one banana)- new 9p 3-4 slices ww toast with Pb- new Reduce milk- new Follow-up: [facility] follow-up in 6 weeks Cristina Kirkland RDN, EBENEZER Certified Diabetes Care and Document Review Specialist P: [phone] Thank you for this referral
== END ==
PROVIDERS: PCP Family Medicine; Referring Provider Family Medicine
DX: E11.69 Type 2 diabetes mellitus with other specified complication (principal); E66.9 Obesity, unspecified; E78.5 Hyperlipidemia, unspecified; K76.0 Fatty (change of) liver, not elsewhere classified; Z71.3 Dietary counseling and surveillance
CPT/HCPCS: 97803

== ENCOUNTER → 2024-12-30 08:13 | Outpatient (CLI) | payer OTHER, MEDICAID, SELFPAY ==
--- NOTE | 2024-12-30 09:09 | DIAB.MNTFU ---
Follow-up Diabetes Medical Nutrition Therapy Assessment Name: Sriram Carlin Date: 12/30/24 Time: 462-299b Dx: Type II Diabetes Patrick presents for Dm follow-up. Avoiding gas station foods. Choosing sf beverages. Trying to choose sf coffee options. Endorses more sweets lately, ie oreos and ice cream sandwiches Less veggies over the last past month, however back to eating them. Diet Recall: 8am: breakfast burrito 1-2p: sandwich PBJ or meat/cheese sn: slice cheese 6-7p: rice 1c, chicken, veggies 9p: banana water 5-7 x 16.9oz milk 8oz x 2 Reports he thinks his portions are causing wt gain. diet recall indicates mostly good portions. Endorses Last eye doctor visit 5 years ago. waiting to go due to trying to save money to buy new glasses. Aiming for eye appt in Summer. UTD for dental. Checks feet everyday. Anthropometrics: Ht: 6' Wt: 264# today 12/30/24 260# [address] visit 11/17/24 257# PCP visit 09/28/2024 258# reported 09/02/2024 260# reported 08/04/2024 265# 07/09/2024 267# 03/2024 Weight history: 268# 10/2023 per EMR Physical Activity: Reports less walking the last few weeks due to running errands. Recently walking again. Walks dogs 15 min x 5-10 per day reported. Wt lifting 2-3x per week. Daily ab exercises. Endorses previously walking 10-15 min after each meal. Would like to return to this. Self-Monitoring Blood Glucose: None Diabetes Medications: None Pertinent Labs: HgA1c: 6.7% 08/2022 6.7% 10/2023 6.4% 03/2024 6.1% 09/2024 Nutrition Rx: Carbohydrates: Meal:45g Snack:15-30g ; Plate Method Nutrition Diagnosis: - Predicted inadequate fiber intake r/t limited whole grains and veggies aeb diet recall- improved - Excessive carbohydrate intake r/t long period of fasting in afternoon resulting in larger portions aeb diet recall- improved - Predicted excessive CHO intake r/t sweets intake aeb pt report and recent wt gain - new Intervention: This participant was very receptive. Provided appropriate educational handouts. Discussed the following topics: Physical activity Weight management and fatty liver Food portions Limiting sweets Created SMART goals for patient self-care and success. Goals: Check [email or web address] for affordable olive oil- met check store for sugar free coffees- met Add 6p snack (one banana)- met 9p 3-4 slices ww toast with Pb- d/c Reduce milk- met Keep a food journal- new Walk 10-15 mins after each meal- new Follow-up: [facility] follow-up in 4 weeks Cristina Kirkland RDN, EBENEZER Certified Diabetes Care and Actuary Manager P: [phone] Thank you for this referral
== END ==
PROVIDERS: PCP Family Medicine; Referring Provider Family Medicine
DX: E11.69 Type 2 diabetes mellitus with other specified complication (principal); E66.9 Obesity, unspecified; E78.5 Hyperlipidemia, unspecified; K76.0 Fatty (change of) liver, not elsewhere classified; Z71.3 Dietary counseling and surveillance
CPT/HCPCS: 97803

== ENCOUNTER → 2025-02-03 08:16 | Outpatient (CLI) | payer OTHER, MEDICAID, SELFPAY ==
--- NOTE | 2025-02-03 09:04 | DIAB.MNTFU ---
Follow-up Diabetes Medical Nutrition Therapy Assessment Name: Sriram Carlin Date: 02/03/25 Time: 90a Dx: Type II Diabetes Patrick presents for Dm follow-up. Reports treating what he thought was a low BG (karen low energy). Treated with a candy bar. Not checking BG, so unclear of what BG was, however unlikely to be a true low given no DM meds. Reporting fast food intake, stating it doesn't seem too bad. Likes ham or turkey or tuna sandwich. Likes quesadillas. May be a good replacement for current lunch choices. States he worries sometimes if he is getting enough carbs, however diet recall indicates some excessive carb intake. Diet Recall: 8am: slices of bread 2-4 +/- banana +/- salad 1p: cereal (flakes or cheerios) or granola bar sn: nothing or cheese stick 7p: rice 1.5c, protein, veggies sn: nothing or string cheese water diet soda vitamin water Last eye doctor visit 5 years ago. waiting to go due to trying to save money to buy new glasses. Aiming for eye appt in Summer. UTD for dental. Checks feet everyday. Anthropometrics: Ht: 6' Wt: 260# today 02/03/25 --- down 4# since last visit 264# RD visit 12/30/24 260# [address] visit 11/17/24 257# PCP visit 09/28/2024 258# reported 09/02/2024 260# reported 08/04/2024 265# 07/09/2024 267# 03/2024 268# 10/2023 Physical Activity: Walking dogs multiple times per day and also walking on his own 25 mins per day Self-Monitoring Blood Glucose: None Diabetes Medications: None Pertinent Labs: HgA1c: 6.7% 08/2022 6.7% 10/2023 6.4% 03/2024 6.1% 09/2024 Nutrition Rx: Carbohydrates: Meal:45g Snack:15-30g ; Plate Method Nutrition Diagnosis: - Excessive carbohydrate intake r/t limited protein or veggies at meals and filling up on CHO aeb diet recall- new - Inconsistent protein intake r/t limited protein chosen at meals/snacks and worry about needing more CHO aeb pt report and diet recall- new Intervention: This participant was very receptive. Provided appropriate educational handouts. Discussed the following topics: Physical activity Carb portions Reduced risk of low BG with current meds and diet Protein recs Veggies recs Limiting fast food as much as possible and reasoning Created SMART goals for patient self-care and success. Goals: Keep a food journal- met but forgot to bring today Walk 10-15 mins after each meal- improved Try a sandwich or quesadilla for lunch instead of cereal- new Add eggs or peanut butter to breakfast- new Follow-up: [facility] follow-up in 4-6 weeks. PCP visit in March. Cristina Kirkland RDN, VIVIANAES Certified Diabetes Care and Benzene Operator P: [phone] Thank you for this referral
== END ==
PROVIDERS: PCP Family Medicine; Referring Provider Family Medicine
DX: E11.9 Type 2 diabetes mellitus without complications (principal); Z71.3 Dietary counseling and surveillance
CPT/HCPCS: 97803

== ENCOUNTER 2025-03-12 14:39 | Emergency (ER) | payer OTHER, MEDICAID, SELFPAY ==
[2025-03-12 14:46] VITALS: BP 131/97; PULSE 61; RESP 20; TEMP 37; O2SAT 98; BMI 35.2
--- NOTE | 2025-03-12 15:52 | ED_ITS ---
HPI - Extremity Problem <Sarah Mckoy PA-C - Last Filed: 03/12/25 19:54> General Chief complaint: Extremity Problem,Nontraumatic Stated complaint: R foot Numbing Time Seen by Provider: 03/12/25 15:05 Source: patient Mode of arrival: Ambulatory History of Present Illness HPI Narrative: Mr. Carlin is a very pleasant 39-year-old male with a past medical history of diet-controlled type 2 diabetes, hypertension, schizophrenia, acanthosis nigricans who presents to the emergency department for dorsal right foot pain and tingling since this morning. Patient denies any trauma to the right foot but states when he woke up the top of his right foot felt numb and as the day has progressed he started developing some tingling and pain. It is actually getting much better and he reports just mild tingling on the top of the right foot now. He denies any injury, left-sided numbness or tingling, skin changes, calf swelling or pain. His point of care glucose is 90. He denies ever experiencing these symptoms in the past. Related Data Home Medications Medication Instructions Recorded Confirmed lithium carbonate 300 mg capsule 300 mg PO DAILY 05/02/21 09/28/24 lithium carbonate 600 mg capsule 600 mg PO BID 05/02/21 09/28/24 omega-3 fatty acids 1,000 mg 1,000 mg PO DAILY 08/24/22 09/28/24 capsule fluphenazine HCl 5 mg tablet 5 mg PO DAILY 12/12/22 09/28/24 paliperidone palm (3 month) 819 syringe IM 12/12/22 09/28/24 mg/2.63 mL intramuscular syringe (Invega Moni) Previous Rx's Medication Instructions Recorded benztropine 1 mg tablet 1 mg PO BEDTIME #90 tabs 09/05/21 prazosin 2 mg capsule 2 mg PO BEDTIME #90 caps 09/05/21 carvedilol 25 mg tablet 25 mg PO DAILY #90 tabs 10/12/24 loratadine 10 mg tablet (Allergy 10 mg PO DAILY #90 tabs 10/12/24 Relief (loratadine)) pravastatin 80 mg tablet 80 mg PO BEDTIME #90 tabs 10/12/24 icosapent ethyl 1 gram capsule 1 g PO BID #60 caps 01/05/25 lisinopril 2.5 mg tablet 2.5 mg PO DAILY #90 tabs 03/01/25 Allergies Allergy/AdvReac Type Severity Reaction Status Date / Time fenofibrate AdvReac Intermediate knee pain Verified 09/28/24 09:42 Review of Systems <Sarah Mckoy PA-C - Last Filed: 03/12/25 19:54> Review of Systems ROS Unobtainable: All systems reviewed & are unremarkable except as noted in HPI and below Patient History <Sarah Mckoy PA-C - Last Filed: 03/12/25 19:54> Social History Smoking Status: Former smoker Smoking Status: Former smoker tobacco type: cigars alcohol intake frequency: 0-2 drinks per day Exam <Sarah Mckoy PA-C - Last Filed: 03/12/25 19:54> Narrative Exam Narrative: GENERAL: 39 year old patient appears stated age. Well-developed patient, in no acute distress. HEAD: Atraumatic. Normocephalic. CARDIOVASCULAR: Regular rate RESPIRATORY: ?Nonlabored respirations. ?Speaking in clear, full sentences. ? EXTREMITIES: Reported subjective pain and tingling on the right dorsal midfoot. He does have acanthosis nigricans on the dorsal right ankle, no reproducible tenderness. Bilateral brisk capillary refill in the toes, DP and PT pulses, sensation intact to light touch throughout bilateral feet as well. Full range of motion of right ankle and foot. Onychomycosis. Patient does have right medial calf varicose vein that he states is chronic, nontender. NEURO: AOx3. ?Clear speech. ?Moves all 4 extremities appropriately. Somewhat flat affect. SKIN: No rash or erythema of visible areas Initial Vital Signs Initial Vital Signs: Vital Signs Temperature 98.6 F 03/12/25 14:46 Pulse Rate 61 03/12/25 14:46 Respiratory Rate 20 03/12/25 14:46 Blood Pressure 131/97 H 03/12/25 14:46 Pulse Oximetry 98 03/12/25 14:46 Oxygen Delivery Method Room Air 03/12/25 14:46 <Los Gaona MD - Last Filed: 03/12/25 21:12> Initial Vital Signs Initial Vital Signs: Vital Signs Temperature 98.6 F 03/12/25 14:46 Pulse Rate 61 03/12/25 14:46 Respiratory Rate 20 03/12/25 14:46 Blood Pressure 131/97 H 03/12/25 14:46 Pulse Oximetry 98 03/12/25 14:46 Oxygen Delivery Method Room Air 03/12/25 14:46 Course <Sarah Mckoy PA-C - Last Filed: 03/12/25 19:54> Orders Ordered: ED Orders 03/12/25 15:57 XR foot RT min 3V Stat Vital Signs Vital signs: Vital Signs - 8 hr 03/12/25 14:46 03/12/25 18:00 Temperature 98.6 F Pulse Rate 61 59 L Respiratory Rate 20 16 Blood Pressure 131/97 H 121/83 Pulse Oximetry 98 97 Oxygen Delivery Method Room Air Room Air <Los Gaona MD - Last Filed: 03/12/25 21:12> Orders Ordered: ED Orders 03/12/25 15:57 XR foot RT min 3V Stat Vital Signs Vital signs: Vital Signs - 8 hr 03/12/25 14:46 03/12/25 18:00 Temperature 98.6 F Pulse Rate 61 59 L Respiratory Rate 20 16 Blood Pressure 131/97 H 121/83 Pulse Oximetry 98 97 Oxygen Delivery Method Room Air Room Air MDM - Extremity (Nontraumatic) <Sarah Mckoy PA-C - Last Filed: 03/12/25 19:54> Medical Records Attestation: I reviewed the patient's medical records. Lab Data Labs: Point of Care Testing Glucose POC 90 Imaging Data Right Foot X-Ray: Radiologist's Impression: PROCEDURE: XR FOOT RT MIN 3V INDICATIONS: dorsal R foot pain tingling, no trauma TECHNIQUE: 3 views of the foot were acquired. COMPARISON: None. FINDINGS: Bones: No fractures or dislocations. No suspicious bony lesions. Soft tissues: No tibiotalar joint effusion. Achilles tendon appears normal. IMPRESSION: No acute bony abnormality. Dictated by: Jose Mcconnell M.D. on 03/12/2025 at 16:57 Approved by: Jose Mcconnell M.D. on 03/12/2025 at 16:59 MDM Narrative Medical decision making narrative: 39-year-old male with a past medical history of diet-controlled type 2 diabetes, hypertension, schizophrenia, acanthosis nigricans who presents to the emergency department for dorsal right foot pain and tingling since this morning. Differential diagnosis includes but is not limited to nerve compression, neuropathy, strain, sprain, fracture, bony growth, etc. On exam patient is in no acute distress, nontoxic appearing, vital signs appropriate, bilateral feet neurovascularly intact, full range of motion, no reproducible pain. He woke up with some numbness on the top of his right foot that is progressively changed into tingling in pain, is getting much better and is quite mild at this time, declines need for pain medication. No foot drop. We will obtain baseline x-ray to rule out underlying bony abnormality or growth, point of care glucose 90. Due to technical difficulties with Radiology, unable to get final x-ray read. Patient would like to go. He is ambulatory, no obvious fracture, we will treat with анна Bernard, PCP follow up. Patient provided me with his father's phone number [phone] and would like me to call with x-ray results. Discussed ED return precautions. Patient verbalized understanding of all information agreeable to plan. He is stable for discharge home. 7:54pm called to update patient of x-ray report results. XR neg. Questions answered. <Los Gaona MD - Last Filed: 03/12/25 21:12> Lab Data Labs: Point of Care Testing Glucose POC 90 Discharge Plan Departure Patient Disposition: Home Clinical Impression: Foot pain, right, Numbness of right foot Instructions: DI for Foot Pain Activity Restrictions/Additional Instructions: Today you were evaluated for right foot pain, tingling, numbness. I am very glad that your symptoms are improving. I would like you to start wearing compression socks. We are having technical difficulties and were unable to have the final radiology read of your x-ray today, so I will call your dad's phone number when I get the results as we discussed. Please use RICE therapy for your pain in addition to ibuprofen/acetaminophen. Rest the painful area. Ice the area of pain/swelling for at least 15 minutes, 4x a day. Compress the area of swelling using a brace, wrap, or splint if applied. Elevate the painful or swollen extremity by supporting it above the level of the heart with pillows when sitting or laying. Please follow up with your primary care doctor within the next 2-3 days for ER follow-up. (If you do not have a PCP you can call [phone]. ?to schedule an appointment with an [facility] Primary Care Provider) IF YOU DEVELOP ANY NEW OR WORSENING SYMPTOMS, RETURN TO THE ER! Please read the attached instructions, they highlight more specific treatments and interventions for you at home. Thank you for letting me participate in your care, Sarah Mckoy PA-C Prescriptions: No Action omega-3 fatty acids 1,000 mg capsule 1,000 mg PO DAILY pravastatin 80 mg tablet 80 mg PO BEDTIME Qty: 90 3RF carvedilol 25 mg tablet 25 mg PO DAILY Qty: 90 1RF Hold Instructions: needs labs Rx Instructions: must administer with a meal/food loratadine [Allergy Relief (loratadine)] 10 mg tablet 10 mg PO DAILY Qty: 90 1RF icosapent ethyl 1 gram capsule 1 g PO BID Qty: 60 3RF Rx Instructions: With meals lisinopril 2.5 mg tablet 2.5 mg PO DAILY Qty: 90 3RF benztropine 1 mg tablet 1 mg PO BEDTIME Qty: 90 1RF prazosin 2 mg capsule 2 mg PO BEDTIME Qty: 90 1RF Invega Trinza 819 mg/2.63 mL syringe IM fluphenazine HCl 5 mg tablet 5 mg PO DAILY lithium carbonate 600 mg capsule 600 mg PO BID lithium carbonate 300 mg capsule 300 mg PO DAILY Referrals: Nicole Enriquez DO [Primary Care Provider] - Stand Alone Forms: Patient Portal/API/Survey ED Sign-out <Los Gaona MD - Last Filed: 03/12/25 21:12> Cosign ED Attending Jumana Attestation: I was immediately available in the department for consultation. This documentation has been reviewed and I agree with assessment and plan. Supervised by Los Gaona MD
--- NOTE | 2025-03-12 15:57 | DI.RAD.S_ITS ---
PROCEDURE: XR FOOT RT MIN 3V INDICATIONS: dorsal R foot pain tingling, no trauma TECHNIQUE: 3 views of the foot were acquired. COMPARISON: None. FINDINGS: Bones: No fractures or dislocations. No suspicious bony lesions. Soft tissues: No tibiotalar joint effusion. Achilles tendon appears normal. IMPRESSION: No acute bony abnormality. Dictated by: Jose Mcconnell M.D. on 03/12/2025 at 16:57 Approved by: Jose Mcconnell M.D. on 03/12/2025 at 16:59
[2025-03-12 18:00] VITALS: BP 121/83; PULSE 59; RESP 16; O2SAT 97
== END 2025-03-12 18:06 | disposition home or self-care (01) ==
PROVIDERS: Emergency Provider Physician Assistant; PCP Family Medicine
DX: M79.671 Pain in right foot (principal); R20.0 Anesthesia of skin
CPT/HCPCS: 73630; 82962; 99282; 99283

== ENCOUNTER → 2025-03-16 07:46 | Outpatient (CLI) | payer OTHER, SELFPAY ==
--- NOTE | 2025-03-16 09:49 | DIAB.MNTFU ---
Follow-up Diabetes Medical Nutrition Therapy Assessment Name: Sriram Carlin (Patrick) Date: 03/16/25 Time: 90a Dx: Type II Diabetes Patrick presents for Dm follow-up. Reports recent ED visit for his left leg feeling numb. This has since subsided. Reports this may be r/t to his old bed and how he is sleeping. Reports eating veggies daily. Endorses eating dinner prepared by his mother more often now, usually [place] foods. Endorses milkshake 1x per week, though less recently per report. Drinking a no sugar added juice lately. just natural sugars. Anticipate that this may be 100% juice. Added more protein to breakfast and lunch recently with pb. Diet Recall: 8am: slices of bread 2 1p: 3-4 pb toasts and carrots +/- banana sn: cheese stick 7p: rice 1c, protein, veggies OR egg, cheese, coyle water diet soda no sugar added juice vitamin water Last eye doctor visit 5 years ago. waiting to go due to trying to save money to buy new glasses. Aiming for eye appt in Summer. UTD for dental. Checks feet everyday. Anthropometrics: Ht: 6' Wt: 262# today 03/16/25 260# [address] visit 02/03/25 264# RD visit 12/30/24 260# RD visit 11/17/24 257# PCP visit 09/28/2024 258# reported 09/02/2024 260# reported 08/04/2024 265# 07/09/2024 267# 03/2024 268# 10/2023 Physical Activity: Walking dogs and walking on his own for 60 min per day. Use to weight lift in high school as a hobby per report. Has intermittently picked resistance training up. Interested in restarting. Self-Monitoring Blood Glucose: None Diabetes Medications: None Pertinent Labs: HgA1c: 6.7% 08/2022 6.7% 10/2023 6.4% 03/2024 6.1% 09/2024 Nutrition Rx: Carbohydrates: Meal:45g Snack:15-30g ; Plate Method Nutrition Diagnosis: - Excessive carbohydrate intake r/t limited protein or veggies at meals and filling up on CHO aeb diet recall- improved - Inconsistent protein intake r/t limited protein chosen at meals/snacks and worry about needing more CHO aeb pt report and diet recall- improved - Excessive CHO intake r/t juice intake aeb pt report of no sugar added 100% juice- new Intervention: This participant was very receptive. Provided appropriate educational handouts. Discussed the following topics: Physical activity Carb portions Label reading for net CHO CHO impacting BG, even when natural sugars 100% juice vs sf juice Created SMART goals for patient self-care and success. Goals: Try a sandwich or quesadilla for lunch instead of cereal- not met Add eggs or peanut butter to breakfast- met Choose sugar free juice- new Start resistance training safely- new Follow-up: CORRINE SOL follow-up in 6-8 weeks. PCP visit in March. Cristina Kirkland RDN, VIVIANAES Certified Diabetes Care and [employer] Developer P: [phone] Thank you for this referral
== END ==
PROVIDERS: PCP Family Medicine; Referring Provider Family Medicine
DX: E11.9 Type 2 diabetes mellitus without complications (principal); Z71.3 Dietary counseling and surveillance
CPT/HCPCS: 97803

== ENCOUNTER → 2025-04-12 07:24 | Outpatient (CLI) | payer OTHER, SELFPAY ==
[2025-04-12 07:44] LABS: Add Manual Diff / Slide Review NO; Basophils Absolute Auto 0 /uL (0-100); Basophils Percent Auto 0.5 % (0-2); Eosinophils Absolute Auto 400 /uL (0-450); Eosinophils Percent Auto 4.7 % (2-4); Hemoglobin 14.3 g/dL (13.5-17.5); Lymphocytes Absolute Auto 3900 /uL (1100-4500); Lymphocytes Percent Auto 50.2 % (25-40); Mean Corpuscular HGB Conc 34.9 % (30-36); Mean Corpuscular Volume 88.9 fL (80-100); Monocytes Absolute Auto 500 /uL (0-900); Monocytes Percent Auto 6.3 % (3-14); Neutrophils Absolute Auto 3000 /uL (1500-7000); Neutrophils Percent Auto 38.3 % (50-75); Platelet Count 275 X10^3/uL (150-400); Red Blood Cell Count 4.61 X10^6/uL (4.5-5.9); Red Cell Distribution Width 12.6 % (11.6-14.8); White Blood Cell Count 7.7 X10^3/uL (4.5-11.0)
[2025-04-12 08:06] LABS: Alanine Aminotransferase 34 IU/L (<50); Albumin 4.6 g/dL (3.5-5.0); Albumin Globulin Ratio 1.6 (1.0-2.8); Alkaline Phosphatase 69 U/L (38-126); Aspartate Aminotransferase 30 IU/L (17-59); BUN Creatinine Ratio 12.4 (6-22); Bilirubin Total 0.5 mg/dL (0.2-1.3); Blood Urea Nitrogen 12 mg/dL (9-20); Calcium 9.8 mg/dL (8.4-10.2); Carbon Dioxide 25 mmol/L (22-32); Chloride 102 mmol/L (98-107); Cholesterol 167 mg/dL (140-199); Estimated Glomerular Filt Rate > 60 mL/min (>60); Globulin 2.9 g/dL (1.7-4.1); Glucose 125 mg/dL (70-99); HDL Cholesterol 28 mg/dL (40-60); HEMOLYSIS < 15 (0-50); LDL Cholesterol Calculated 62 mg/dL (<100); Sodium 136 mmol/L (137-145); Total Protein 7.5 g/dL (6.3-8.2); Triglycerides 383 mg/dL (35-150)
[2025-04-12 11:51] LABS: Creatinine Urine Random 50.21 mg/dL
[2025-04-12 11:57] LABS: Microalbumin Urine Random 2.7 mg/dL (0-1.6)
== END ==
PROVIDERS: PCP Family Medicine; Referring Provider Family Medicine; Visit Provider Family Medicine
DX: R74.8 Abnormal levels of other serum enzymes (principal); E11.69 Type 2 diabetes mellitus with other specified complication; E78.5 Hyperlipidemia, unspecified; E66.9 Obesity, unspecified
CPT/HCPCS: 36415; 80053; 80061; 82043; 82570; 85025

== ENCOUNTER 2025-05-30 00:23 | Emergency (ER) | payer OTHER, SELFPAY ==
[2025-05-30] VITALS (8 sets, daily range): BP systolic 122–125; BP diastolic 58–64; PULSE 65–71; RESP 16–28; TEMP 36.6; O2SAT 97–98; BMI 33.9
--- NOTE | 2025-05-30 00:29 | EKG_ITS ---
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
--- NOTE | 2025-05-30 00:32 | ED.CHESTPAIN ---
HPI - Chest Pain General Chief Complaint: Chest Pain Stated Complaint: chestpain, Sob Time Seen by Provider: 05/30/25 00:26 Source: patient Mode of arrival: Ambulatory Limitations: no limitations History of Present Illness HPI narrative: Patient is a 39-year-old male with a past medical history of hypertension, diabetes, hyperlipidemia, schizophrenia on lithium, comes into the ED from home for evaluation of chest pressure/pain, states it started several hours prior to arrival, states that it feels like pressure is coming from the inside out, states that he has some mild shortness of breath that is not related to his chest pain, he denies any other symptoms at this time. He currently states that symptoms have almost completely resolved but came into the ED to be ?checked out just to be safe. Related Data Home Medications ?Medication ?Instructions ?Recorded ?Confirmed lithium carbonate 300 mg capsule 300 mg PO DAILY 05/02/21 03/29/25 lithium carbonate 600 mg capsule 600 mg PO BID 05/02/21 03/29/25 omega-3 fatty acids 1,000 mg 1,000 mg PO DAILY 08/24/22 03/29/25 capsule fluphenazine HCl 5 mg tablet 5 mg PO DAILY 12/12/22 03/29/25 paliperidone palm (3 month) 819 syringe IM 12/12/22 03/29/25 mg/2.63 mL intramuscular syringe (Invega Moni) Previous Rx's ?Medication ?Instructions ?Recorded benztropine 1 mg tablet 1 mg PO BEDTIME #90 tabs 09/05/21 prazosin 2 mg capsule 2 mg PO BEDTIME #90 caps 09/05/21 pravastatin 80 mg tablet 80 mg PO BEDTIME #90 tabs 10/12/24 lisinopril 2.5 mg tablet 2.5 mg PO DAILY #90 tabs 03/01/25 amoxicillin 875 mg-potassium 1 tab PO BID #10 tabs 03/29/25 clavulanate 125 mg tablet carvedilol 25 mg tablet 25 mg PO DAILY #90 tabs 04/01/25 loratadine 10 mg tablet (Allergy 10 mg PO DAILY #90 tabs 04/01/25 Relief (loratadine)) ezetimibe 10 mg tablet 10 mg PO DAILY #90 tabs 04/16/25 icosapent ethyl 1 gram capsule 1 g PO BID #60 caps 04/28/25 Allergies Allergy/AdvReac Type Severity Reaction Status Date / Time fenofibrate AdvReac Intermediate knee pain Verified 05/30/25 00:29 Review of Systems Review of Systems Narrative: General: Denies fever, chills, weight loss HEENT: Denies headache, eye drainage, eye irritation, head trauma, sore throat, voice change Cardiovascular: Positive chest pain, denies palpitations, tachycardia Respiratory: Positive shortness of breath, denies cough, wheeze, stridor GI/: Denies any abdominal pain, nausea, vomiting, diarrhea, bright red blood per rectum, melanotic stools, urinary frequency, urinary retention, dysuria, hematuria MSK: Denies any joint pain, muscle pains, swelling Skin: Denies any rashes, lesions, discoloration Neuro: Denies any headache, lightheadedness, dizziness, fainting, weakness Psych: Denies SI/HI Patient History Medical History (Updated 05/30/25 @ 01:40 by Moiz Walsh DO) Otitis media tobacco type: cigars alcohol intake frequency: 0-2 drinks per day Exam Narrative Exam Narrative: General: Cooperative, well-developed, not in acute distress HEENT: Normocephalic, atraumatic, PERRLA, normal sclera, eyelids normal Neck: Active full range of motion, atraumatic Chest: Normal to inspection, negative crepitus, no overlying erythema ecchymosis Respiratory: Normal respiratory effort, not in acute respiratory distress, clear to auscultation bilaterally negative cough, wheeze, tachypnea, rhonchi, rales Cardiology: Regular rate rhythm negative gallop, murmur, rubs GI/: No tenderness to palpation, soft, non rigid, normal to inspection, exam deferred MSK: Full active range of motion in all 4 extremities, atraumatic, no tenderness to palpation of any bony prominences Skin: No rashes or lesions noted Neuro: Alert awake oriented x3, moves all 4 extremities spontaneously, cranial nerves intact, able to answer all questions appropriately follows commands appropriately Psych: Cooperative, negative suicidal or homicidal ideations Initial Vital Signs Initial Vital Signs: Vital Signs Temperature 97.9 F 05/30/25 00:29 Pulse Rate 65 05/30/25 00:29 Respiratory Rate 16 05/30/25 00:29 Blood Pressure 125/64 05/30/25 00:29 Pulse Oximetry 98 05/30/25 00:29 Oxygen Delivery Method Room Air 05/30/25 00:29 Course Orders Ordered: ED Orders 05/30/25 00:25 EKG-12 Lead Stat 05/30/25 00:33 XR chest 1V Stat 05/30/25 00:55 Complete Blood Count AUTO DIFF Stat Comprehensive Metabolic Panel Stat Lipase Stat MAG [Magnesium] Stat NT-proBNP (BNP-Adult 18+) Stat Troponin & CK Cardiac Panel Stat Discontinued Medications Aspirin (Aspirin 81 Mg Chew Tab) 324 mg PO NOW ONE Stop: 05/30/25 00:33 Vital Signs Vital signs: Vital Signs - 8 hr 05/30/25 00:29 05/30/25 00:30 05/30/25 00:31 Temperature 97.9 F Pulse Rate 65 70 Respiratory Rate 16 Blood Pressure 125/64 124/64 Pulse Oximetry 98 98 Oxygen Delivery Method Room Air 05/30/25 00:31 05/30/25 01:00 05/30/25 01:02 Temperature Pulse Rate 71 70 68 Respiratory Rate 20 24 23 Blood Pressure Pulse Oximetry 98 97 97 Oxygen Delivery Method 05/30/25 01:02 Temperature Pulse Rate Respiratory Rate Blood Pressure 125/62 Pulse Oximetry Oxygen Delivery Method MDM - Chest Pain Differential Diagnosis Differential diagnosis: Likely stable angina, unstable angina pectoris, atypical chest pain, st elevation myocardial infarction, costochondritis, chest pain and other (Pneumonia, electrolyte abnormality) Lab Data 05/30/25 00:55 05/30/25 00:55 Labs: Lab Results 05/30/25 Range/Units 00:55 WBC 9.2 (4.5-11.0) X10^3/uL RBC 4.27 L (4.5-5.9) X10^6/uL Hgb 13.3 L (13.5-17.5) g/dL Hct 38.1 L (41-53) % MCV 89.2 (80-100) fL MCH 31.3 (26-34) PG MCHC 35.1 (30-36) % RDW 13.1 (11.6-14.8) % Plt Count 285 (150-400) X10^3/uL Neut % (Auto) 48.6 L (50-75) % Lymph % (Auto) 37.4 (25-40) % [place] % (Auto) 8.5 (3-14) % Eos % (Auto) 4.9 H (2-4) % Baso % (Auto) 0.6 (0-2) % Neut # (Auto) 4500 (2322-3621) /uL Lymph # (Auto) 3400 (5575-3647) /uL [place] # (Auto) 800 (0-900) /uL Eos # (Auto) 400 (0-450) /uL Baso # (Auto) 100 (0-100) /uL Sodium 137 (137-145) mmol/L Potassium 3.9 (3.4-5.1) mmol/L Chloride 104 (98-107) mmol/L Carbon Dioxide 24 (22-32) mmol/L BUN 17 (9-20) mg/dL Creatinine 0.87 (0.66-1.25) mg/dL Estimated GFR > 60 (>60) mL/min BUN/Creatinine Ratio 19.5 (6-22) Glucose 117 H (70-99) mg/dL Calcium 9.3 (8.4-10.2) mg/dL Magnesium 1.9 (1.6-2.3) mg/dL Total Bilirubin 0.3 (0.2-1.3) mg/dL AST 34 (17-59) IU/L ALT 32 (<50) IU/L Alkaline Phosphatase 71 (38-126) U/L Total Creatine Kinase 123 (55-170) U/L Troponin I < 0.012 (0.01-0.034) ng/mL NT-Pro-B Natriuret Pep 28 (<125) pg/mL Total Protein 7.9 (6.3-8.2) g/dL Albumin 4.5 (3.5-5.0) g/dL Globulin 3.4 (1.7-4.1) g/dL Albumin/Globulin Ratio 1.3 (1.0-2.8) Lipase 231 (23-300) U/L Imaging Data Chest x-ray: Radiologist's Impression: [address] [address] XRay Report Signed Patient: Sriram Carlin MR#: [id number] : 1985 Acct:[id number] Age/Sex: 39 / M Date of Service: 05/30/25 Loc: ED Accession Number: [id number] Procedure: XR chest 1V Ordering Provider: Moiz Walsh D.O. PROCEDURE: XR CHEST 1V INDICATIONS: chest pain TECHNIQUE: One view of the chest was acquired. COMPARISON: None. FINDINGS: Surgical changes and devices: None. Lungs and pleura: An incomplete inspiratory result is noted, causing a crowded appearance to the lung markings. No focal infiltrates are seen. No pneumothorax or significant pleural effusions are seen. Mediastinum: Mediastinal contours appear normal. Heart size is normal. Bones and chest wall: No suspicious bony lesions. Overlying soft tissues appear unremarkable. IMPRESSION: Limited portable chest examination, without a significant cardiopulmonary abnormality identified. No pneumothorax or focal infiltrate can be seen. ECG Data Interpretation: EKG interpreted ED physician sinus 72 beats per minute QTC 433, normal axis QRS [place] intervals within normal limits no STEMI MDM Narrative Medical decision making narrative: Patient is a 39-year-old male past medical history of schizophrenia on lithium, hypertension hyperlipidemia diabetes presenting from home for evaluation of chest pressure, states it started several hours ago, states that he is currently asymptomatic, he states that it feels like pressure pushing out of his chest states that he has some mild shortness of breath but does not attribute this to his pain nonexertional, patient had lab work imaging EKG performed here in the emergency department. EKG nonischemic in nature, chest x-ray without any acute cardiopulmonary abnormality. The patient's troponin negative lab work unremarkable, heart score of 2. Patient was instructed follow up with primary care and Cardiology in outpatient setting, he verbalized understanding of this and agrees to being discharged home with outpatient follow up Discharge Plan Departure Patient Disposition: Home Clinical Impression: Chest pain Instructions: DI for Chest Pain Activity Restrictions/Additional Instructions: Please follow up with primary care and Cardiology in an outpatient setting Please read the discharge instructions sheet carefully and bring all papers to all doctor follow-up visits, as it may contain information that your doctor may want to see. Disease processes change and evolve, if your symptoms worsen or if you develop any new symptoms that are concerning to you please return for evaluation. Your evaluation today does not show any evidence of any life-threatening/serious illnesses requiring admission to the hospital or surgery. Please follow-up with your doctor for re-evaluation in approximately 1 day. Seek immediate medical attention for any worrisome symptoms. *If you do not have a primary care provider please contact the [facility] Resource line at [phone]. They will ask some questions about your medical history and help get you set up with a doctor in the community. Prescriptions: No Action omega-3 fatty acids 1,000 mg capsule 1,000 mg PO DAILY pravastatin 80 mg tablet 80 mg PO BEDTIME Qty: 90 3RF lisinopril 2.5 mg tablet 2.5 mg PO DAILY Qty: 90 3RF loratadine [Allergy Relief (loratadine)] 10 mg tablet 10 mg PO DAILY Qty: 90 1RF carvedilol 25 mg tablet 25 mg PO DAILY Qty: 90 1RF Rx Instructions: must administer with a meal/food ezetimibe 10 mg tablet 10 mg PO DAILY Qty: 90 1RF icosapent ethyl 1 gram capsule 1 g PO BID Qty: 60 3RF Rx Instructions: With meals benztropine 1 mg tablet 1 mg PO BEDTIME Qty: 90 1RF prazosin 2 mg capsule 2 mg PO BEDTIME Qty: 90 1RF Invega Trinza 819 mg/2.63 mL syringe IM fluphenazine HCl 5 mg tablet 5 mg PO DAILY amoxicillin-pot clavulanate 875-125 mg tablet 1 tab PO BID Qty: 10 0RF lithium carbonate 600 mg capsule 600 mg PO BID lithium carbonate 300 mg capsule 300 mg PO DAILY Referrals: Calderon Quinonez MD [Physician, Cardiology] Nicole Enriquez DO [Primary Care Provider, Family Practice] Stand Alone Forms: Patient Portal/API
[2025-05-30 01:04] LABS: Add Manual Diff / Slide Review NO; Hematocrit 38.1 % (41-53); Hemoglobin 13.3 g/dL (13.5-17.5); Lymphocytes Absolute Auto 3400 /uL (1100-4500); Mean Corpuscular HGB Conc 35.1 % (30-36); Mean Corpuscular Hemoglobin 31.3 PG (26-34); Mean Corpuscular Volume 89.2 fL (80-100); Platelet Count 285 X10^3/uL (150-400)
[2025-05-30 01:20] LABS: Alanine Aminotransferase 32 IU/L (<50); Albumin 4.5 g/dL (3.5-5.0); Albumin Globulin Ratio 1.3 (1.0-2.8); Alkaline Phosphatase 71 U/L (38-126); Blood Urea Nitrogen 17 mg/dL (9-20); Calcium 9.3 mg/dL (8.4-10.2); Carbon Dioxide 24 mmol/L (22-32); Chloride 104 mmol/L (98-107); Creatine Kinase 123 U/L (55-170); Estimated Glomerular Filt Rate > 60 mL/min (>60); Globulin 3.4 g/dL (1.7-4.1); Glucose 117 mg/dL (70-99); HEMOLYSIS 18 (0-50); Lipase 231 U/L (23-300); Magnesium 1.9 mg/dL (1.6-2.3); Potassium 3.9 mmol/L (3.4-5.1); Sodium 137 mmol/L (137-145); Total Protein 7.9 g/dL (6.3-8.2)
[2025-05-30 01:32] LABS: NT-proBNP (BNP-Adult 18+) 28 pg/mL (<125); Troponin I < 0.012 ng/mL (0.01-0.034)
== END 2025-05-30 01:54 | disposition home or self-care (01) ==
PROVIDERS: Emergency Provider Student in an Organized Health Care Education/Training Program; PCP Family Medicine
DX: R07.9 Chest pain, unspecified (principal); R06.02 Shortness of breath; I10 Essential (primary) hypertension
CPT/HCPCS: 36415; 71045; 80053; 82550; 83690; 83735; 83880; 84484; 85025; 93005; 99283; 99284

== ENCOUNTER → 2025-06-01 06:07 | Outpatient (CLI) | payer OTHER, SELFPAY ==
--- NOTE | 2025-06-01 07:44 | DIAB.FU ---
Follow-up Diabetes Education Assessment Name: Sriram Carlin (Patrick) Date: 06/01/25 Time: Dx: Type II Diabetes Patrick presents for Dm follow-up. Reports recent ED visit for chest pain. Negative troponins and unremarkable EKG per ED reports. Chest pain has since subsided. Reports chest pains may be from stress. States playing with dogs and walking sometimes help with stress. Reports feeling as though some people treat him different due to his schizophrenia. States sometimes people are not as nice to him. Also endorses some stress with recent wrist sprain and limiting what he normally can do. Sees PCP next week. Recent labs improved with lower hgA1c and in goal AST and ALT. Reports eating veggies 3-4x per day. use to have more, ie salads most days. Endorses milkshake 1x per month, down from weekly. Drinking very low sugar or no sugar juices now. Reports needing eye appt but wants to save money for glasses. Encouraged eye exam and can get glasses once he is able to afford. He agreed. Last eye doctor visit 5 years ago. UTD for dental. Checks feet everyday. Down 10# since starting our visits. Has personal goal of 220#. Anthropometrics: Ht: 6' Wt: 258# RD visit 05/2025 262# 03/16/25 260# [address] visit 02/03/25 264# RD visit 12/30/24 260# RD visit 11/17/24 257# PCP visit 09/28/2024 258# reported 09/02/2024 260# reported 08/04/2024 265# 07/09/2024 267# 03/2024 268# 10/2023 Physical Activity: Walking dogs and walking on his own for 60 min per day. Use to weight lift in high school as a hobby per report. Has intermittently picked resistance training up. Interested in restarting more consistently. Self-Monitoring Blood Glucose: None Diabetes Medications: None Pertinent Labs: HgA1c: 6.7% 08/2022 6.7% 10/2023 6.4% 03/2024 6.1% 09/2024 5.8% 03/2025 AST: 34 ALT: 32 Past Medical History: (Last Updated 03/29/25 @ 10:37 by Nicole Enriquez DO) Otitis media Intervention: This participant was very receptive. Provided appropriate educational handouts. Discussed the following topics: Physical activity goals Improved lab work Weight management goals and expectations Veggie intake Reducing DM complications Stress management Created SMART goals for patient self-care and success. Goals: Choose sugar free juice- met Start resistance training safely- in progress Start resistance training safely 2x per week- new Eat veggies 5-6x per week- new Make eye appt- new Try deep breathing when feeling stressed- new Follow-up: [facility] follow-up in 6 months or sooner prn. Cristina Kirkland RDN, EBENEZER Certified [facility] and [employer] In [employer] P: [phone] Thank you for this referral
== END ==
LOC: DIET 06:07
PROVIDERS: PCP Family Medicine; Referring Provider Family Medicine
DX: E11.9 Type 2 diabetes mellitus without complications (principal); Z71.3 Dietary counseling and surveillance
CPT/HCPCS: G0108